=== PATIENT | male | born 1945 | race Caucasian/White ===

== ENCOUNTER 2022-12-13 11:38 | Emergency (ER) | payer MEDICARE ==
[~2022-12-13] VITALS: Ht 165.1 cm; Wt 64.4 kg
[2022-12-13 11:42] VITALS: BP_SYST 92; PULSE 82; RESP 18; TEMP 97; O2SAT 97
[2022-12-13 11:49] VITALS: BP_SYST 92; PULSE 72; RESP 16; O2SAT 100
[2022-12-13] MEDS ORDERED: NACL 0.9% 1,000 ML IV ONE ×2 (12:30→13:30)
[2022-12-13 13:56] LABS: BASOPHILS # (AUTO) 0.1 K/uL (0.0-0.2); EOSINOPHILS # (AUTO) 0.3 K/uL (0.0-0.4); HEMATOCRIT 31.3 % (36-54); HEMOGLOBIN 10.2 g/dL (14.0-18.0); LYMPHOCYTES # (AUTO) 0.9 K/uL (1.0-5.5); LYMPHOCYTES % (AUTO) 15.5 % (20.5-51.5); MEAN CORPUSCULAR HEMOGLOBIN 29 pg (27-31); MEAN CORPUSCULAR HGB CONC 33 % (32-36); MEAN CORPUSCULAR VOLUME 89 fL (79.0-98.0); MONOCYTES # (AUTO) 0.5 K/uL (0.0-1.0); MONOCYTES % (AUTO) 9.2 % (1.7-9.3); NEUTROPHILS # (AUTO) 3.9 K/uL (1.8-7.7); NEUTROPHILS % (AUTO) 68.3 % (40.0-70.0); PLATELET COUNT (AUTO) 157 K/uL (130-430); RED BLOOD CELL COUNT(AUTO) 3.52 MIL/uL (4.2-6.2); RED CELL DISTRIBUTION WIDTH 14.8 % (9.0-15.0); WHITE BLOOD COUNT (AUTO) 5.7 K/uL (4.8-10.8)
[2022-12-13 14:01] LABS: ACETONE, SERUM NEGATIVE (NEGATIVE)
[2022-12-13 14:02] LABS: ANION GAP 8 (5-15); CALCIUM 8.3 mg/dL (8.4-11.0); CARBON DIOXIDE 23 mmol/L (23-29); CHLORIDE 101 mmol/L (98-107); CREATININE 1.38 mg/dL (0.55-1.30); GLUCOSE 262 mg/dL (74-106); POTASSIUM 4.5 mmol/L (3.5-5.1); SODIUM SERUM 132 mmol/L (136-145); UREA NITROGEN, BLOOD 19 mg/dL (8-21)
[2022-12-13 14:07] LABS: INR 1.8 (0.80-1.20); PROTHROMBIN TIME 18.2 SECS (9.5-12.5)
[2022-12-13 14:18] LABS: ALANINE AMINOTRANSFERASE 25 U/L (12-78); ASPARTATE AMINOTRANSFERASE 22 U/L (10-37); CREATINE KINASE, TOTAL 72 U/L (39-308); TOTAL BILIRUBIN 1.2 mg/dL (0.0-1.0); TOTAL PROTEIN, SERUM 6.2 g/dL (6.4-8.3)
== END 2022-12-13 14:50 | disposition home or self-care (01) ==
LOC: SED 11:38
DX: R55 Syncope and collapse (principal); R53.1 Weakness; Z79.899 Other long term (current) drug therapy
CPT/HCPCS: 99285; 96360; 71045; 96361; 80053; 82009; 82550; 85025; 85610; 85730; 84484; 36415; 93005; 83605; J7030